=== PATIENT | male | born 2005 ===

== ENCOUNTER → 2025-04-10 | Outpatient (CLI) | payer SELFPAY ==
[~2025-04-10] MED LIST: AMOX50SU PO
[2025-04-10 12:47] LABS: Chlamydia Trachomatis Throat NOT DETECTED (NOT DETECT); Neisseria Gonorrhoea Throat NOT DETECTED (NOT DETECT)
== END ==
LOC: LAB SHORT 10:19 → LAB 10:19
PROVIDERS: Physician Assistant
DX: N34.1 Nonspecific urethritis (principal)
CPT/HCPCS: 87491; 87591